=== PATIENT | female | born 1985 | race Hispanic/Latino ===

== ENCOUNTER 2020-12-16 08:26 | Day surgery (SDC) | payer OTHER ==
[~2020-12-16 08:26] MED LIST: SODIUM CHLORIDE 0.9% 1000 ML 1,000 ML IV SCH
--- NOTE | 2020-12-16 09:25 | Anesthesia Day of Surgery ---
Anesthesia Day of Surgery - Day of Surgery Patient Examined: Yes Patient H&P Reviewed: Yes Patient is NPO: Yes (last water intake 0800)
--- NOTE | 2020-12-16 09:25 | Anesthesia Consultation ---
Anesthesia Consult and Med Hx Date of service: 12/16/20 - Airway Anesthetic Teeth Evaluation: Good ROM Head & Neck: Adequate Mental/Hyoid Distance: Adequate Mallampati Class: Class III Intubation Access Assessment: Possibly Difficult - Pre-Operative Health Status ASA Pre-Surgery Classification: ASA2 Proposed Anesthetic Plan: MAC - Pulmonary Hx Smoking: No Hx Respiratory Symptoms: No - Cardiovascular System Hx Hypertension: No - Central Nervous System CVA: No - Endocrine Hx Renal Disease: No Hx Liver Disease: No Hx Insulin Dependent Diabetes: No Hx Non-Insulin Dependent Diabetes: No Hx Thyroid Disease: No - Other Systems Hx Obesity: Yes (BMI 40) - Additional Comments Anesthesia Medical History Comments: No hx anesthetic complications.
[2020-12-16] MEDS ORDERED: propofoL 200 MG/20 ML VIAL IV ONE ×3 (10:30→10:58)
[2020-12-16] MEDS ORDERED: LIDOCAINE MPF (2%) 20 MG/1 ML VIAL 5 ML ONE (10:31)
--- NOTE | 2020-12-16 11:23 | Procedure Note ---
Date of procedure: 12/16/20 Pre-op diagnosis: GI Bleeding Post-op diagnosis: other (Mild to Moderate Erosive Esophagitis/Gastritis/ R/O Celiac DiseaseLarge, Cecal Polyp (14 mm polyp)/ Mild to Moderate Internal Hemorrhoid) Procedure: EGD with biopsy and Colonoscopy and Hot snare Polypectomy and Guo Net used to retrieve the Polyp Anesthesia: MAC Surgeon: KIARA HERMAN Estimated blood loss: minimal Pathology: list Specimen disposition: to lab Condition: stable Disposition: same day (Treat with PPI, avoid aspirin and NSAID for 5 days; otherwise resume home medication and follow up in 1 to 2 weeks ([phone]).)
[2020-12-16] MEDS ORDERED: ONDANSETRON 4 MG/2 ML INJ ONE (11:25)
--- NOTE | 2020-12-16 11:25 | Operative Report ---
PROCEDURE: Colonoscopy with snare polypectomy. INDICATIONS: This is a 35-year-old obese white female who had complained of some GI bleeding. EGD did not show any peptic ulcer disease, did show [id number] erosive esophagitis, gastritis and biopsy was also done to rule out for celiac disease. It is possible that the patient's upper GI bleeding may have been secondary to a Bailee-Harkins tear that has since healed. Colonoscopy was done to make sure there was not any significant lower GI pathology because of the patient's passage of dark stool. DESCRIPTION OF PROCEDURE: The procedure was done after getting informed consent with MAC anesthesia. Initial rectal exam was unremarkable. Instrument was passed through the rectum onto the cecum, which was identified with ileocecal valve and the appendiceal orifice. Visualization was fair to good. In the cecum, there was 14 mm sessile polyp noted that was removed by snare polypectomy and retrieved using the Guo Net. The scope was then reintroduced to the cecum to take a second look at that polypectomy site. There was a small remnant of polyp remained that was then removed by using a cold snare polypectomy and retrieved using the biopsy forceps. There was minimal bleeding from the polypectomy site. The remaining part of the proximal colon, which included the ascending colon, the transverse colon, the descending colon and the sigmoid showed normal mucosa. There were no additional polyps, colitis or diverticular disease noted in the remainder of the colon. The rectum showed [id number] internal hemorrhoid. Again, history of gastrointestinal bleeding, possibly from the cecal polyp that was removed by hot snare polypectomy and retrieved with a Guo Net. No additional polyps noted. There was no diverticular disease and [id number] internal hemorrhoid. The patient will be asked to take some hemorrhoidal medication for that and to avoid aspirin and aspirin-related products for the next few days and treated with a PPI because of the EGD findings of erosive esophagitis and gastritis. The patient will be asked to follow up in the office in 1-2 weeks' time. The procedure was done in the GI lab with assistance of the GI lab team, which included Darnell sherman, GI nurse, Idalia and with the assistance of anesthesia. JOB# [id number] NORAH/[place]
--- NOTE | 2020-12-16 11:29 | Operative Report ---
PROCEDURE: Esophagogastroduodenoscopy with biopsy. INDICATIONS: This is a 35-year-old ____ obese white female, who has been complaining of some GI bleeding. EGD was done to make sure there was not any significant upper GI source of bleeding. DESCRIPTION OF PROCEDURE: The procedure was done after getting informed consent with MAC anesthesia. Instrument was passed through the hypopharynx into the esophagus, which showed some mild to moderate erosive esophagitis is possible that the patient may have had a Bailee-Harkins tear, which has since resolved that may have been the cause of the patient's upper GI source of bleeding. Biopsy was done from the distal esophagus to assess for the severity of the erosive esophagitis. Stomach showed gastritis. No peptic ulcer disease was noted. On the straight or the retroverted view, biopsy was done from the gastric antrum, gastric body and angular incisura to rule out for H. pylori and atrophic gastritis. The pylorus was patent. The duodenum in the first and second portion appeared normal. Biopsy was done from the second part to rule out for possible celiac disease. There was minimal bleeding associated with the procedure. No complications associated with the procedure. ASSESSMENT: History of gastrointestinal bleeding, mild to moderate erosive esophagitis, gastritis, rule out celiac disease. No peptic ulcer disease noted. No active upper GI bleeding noted. PLAN: To treat the patient with PPI and have the patient to avoid aspirin and aspirin-related products for the next few days and follow up in the office in 1-2 weeks' time. The procedure was done in the GI lab with assistance of the GI lab team, which included the explosive ordnance disposal technicianDarnell as well as the GI nurse, Idalia and with assistance of anesthesia. JOB# [id number] NORAH/[place]
[2020-12-16 11:32] VITALS: BP 112/82
--- NOTE | 2020-12-16 11:51 | Post Anesthesia Evaluation ---
- Post Anesthesia Evaluation Patient Participated: Yes Airway Patent: Yes Stable Respiratory Function: Yes Nausea/Vomiting: No Temp > 96.8F: Yes Pain Manageable: Yes Adequeate Hydration: Yes Anesthesia Complications: No
== END 2020-12-16 08:27 | disposition home or self-care (01) ==
LOC: GIO 08:26
DX: K92.2 Gastrointestinal hemorrhage, unspecified (principal); K57.30 Diverticulosis of large intestine without perforation or abscess without bleeding; K64.8 Other hemorrhoids; K21.00 Gastro-esophageal reflux disease with esophagitis, without bleeding; K31.89 Other diseases of stomach and duodenum; E66.9 Obesity, unspecified; D12.0 Benign neoplasm of cecum; Z79.899 Other long term (current) drug therapy; Z68.39 Body mass index [BMI] 39.0-39.9, adult
CPT/HCPCS: 43239; 45385; 81025; 88305; 88342; J2704; J7030; J2405